=== PATIENT | male | born 1980 | race American Indian/Alaskan Native ===

== ENCOUNTER 2019-02-15 12:46 | Outpatient (CLI) | payer OTHER ==
--- NOTE | 2019-02-15 14:04 | XRay Report ---
Chest 2 views: History: Cough. Findings: Normal cardiomediastinal silhouette. Trachea is midline. No consolidation, pneumothorax or pleural effusion. Impression: No acute cardiopulmonary findings.
== END 2019-02-15 12:47 | disposition home or self-care (01) ==
LOC: CARD 12:46
PROVIDERS: ATTEND Internal Medicine
DX: R05 Cough (principal); R42 Dizziness and giddiness; R56.9 Unspecified convulsions; F17.200 Nicotine dependence, unspecified, uncomplicated
CPT/HCPCS: 36600; 71046; 82803; 93005; 93010